=== PATIENT | male | born 1985 | race African-American/Black ===

== ENCOUNTER 2017-07-27 11:14 | Emergency (ER) | payer MEDICAID ==
[2017-07-27 11:35] VITALS: BP 111/68
[2017-07-27] MEDS ORDERED: KETOROLAC TROMETHAMINE 60 MG/2 ML SDV IM ONE (11:58)
--- NOTE | 2017-07-27 12:01 | ER Document Report ---
ED General - General TRAVEL OUTSIDE OF THE [place] IN LAST 30 DAYS: No - General Chief Complaint: Headache Stated Complaint: HEADACHE Time Seen by Provider: 07/27/17 11:52 Notes: Patient presents with tension type headache that is throbbing wraps from his head more on the left side of his jainism. He states he has had headaches like this before. He denies any recent fevers nausea vomiting or illnesses. He denies any cough or congestion. He also has been having chest wall pain that is worse with movement over the last day. He denies any recent traumas or falls. His pain is reproducible with palpation in the absence of any rashes crepitus. He denies any medical problems. He is recently moved back to this area and does not have primary care establishment. (CLEMENT RUBIN) - Related Data Allergies/Adverse Reactions: No Known Allergies Allergy (Verified 07/27/17 11:24) Past Medical History - General Information source: Patient - Social History Smoking Status: Current Every Day Smoker Frequency of alcohol use: Social Drug Abuse: None Family History: Reviewed & Not Pertinent Patient has suicidal ideation: No Patient has homicidal ideation: No Review of Systems - Review of Systems Constitutional: No symptoms reported EENT: No symptoms reported Cardiovascular: See HPI, Chest pain Respiratory: No symptoms reported Gastrointestinal: No symptoms reported Genitourinary: No symptoms reported Male Genitourinary: No symptoms reported Musculoskeletal: No symptoms reported Skin: No symptoms reported Hematologic/Lymphatic: No symptoms reported Neurological/Psychological: See HPI, Headaches -: Yes All other systems reviewed and negative Physical Exam - Vital signs Vitals: Temp Pulse Resp BP Pulse Ox 98.5 F 73 16 111/68 99 07/27/17 11:34 07/27/17 11:34 07/27/17 11:34 07/27/17 11:34 07/27/17 11:34 - Notes Notes: GENERAL: Alert, interacts well, well-appearing, eating chips at bedside. No acute distress. HEAD: Normocephalic, Atraumatic. NECK: Full range of motion. Supple. Trachea midline. LUNGS: Clear to auscultation bilaterally, no wheezes, rales, or rhonchi. No respiratory distress. Reproducible chest wall tenderness to palpation. HEART: Regular rate and rhythm. No murmurs, gallops, or rubs. EXTREMITIES: Moves all four extremities spontaneously. (EZEKIEL DAILEY) Course - Re-evaluation Re-evalutation: 07/27/17 12:03 Patient well-appearing eating chips in triage in no acute distress with reproducible chest wall tenderness consistent with chest wall pain. His headache is similar to previous headaches. Will provide Toradol in triage as well as naproxen prescription. Return precautions provided. Will also provide community care referral. (CLEMENT RUBIN) - Vital Signs Vital signs: Temp Pulse Resp BP Pulse Ox 98.5 F 73 16 111/68 99 07/27/17 11:34 07/27/17 11:34 07/27/17 11:34 07/27/17 11:34 07/27/17 11:34 Discharge - Discharge Clinical Impression: Tension headache, Chest wall pain Condition: Good Disposition: HOME, SELF-CARE Instructions: Chest Wall Pain ([facility]), Headache ([facility]) Additional Instructions: Please take naproxen every 12 hours for the next 5 days and then use as needed thereafter for chest wall pain or headaches. Prescriptions: Naproxen 500 mg PO BID PRN #60 tablet PRN Reason: Scribe Attestation: 07/29/17 03:39 I personally performed the services described documentation, reviewed and edited the documentation which was dictated to describe my presence, and it accurately records my words and actions. (CLEMENT RUBIN) Scribe Documentation - Scribe Written by Josefina:: Josefina Evans, 07/27/2017 12:08 acting as scribe for :: Rodrick
== END 2017-07-27 12:13 | disposition home or self-care (01) ==
LOC: ER 11:14
DX: G44.209 Tension-type headache, unspecified, not intractable (principal); R07.89 Other chest pain; F17.200 Nicotine dependence, unspecified, uncomplicated
CPT/HCPCS: 99283; 96372; J1885